=== PATIENT | female | born 1960 | race Caucasian/White ===

== ENCOUNTER 2019-06-01 09:00 | Outpatient (CLI) | payer OTHER, SELFPAY ==
--- NOTE | 2019-06-01 09:10 | XR_ITS ---
NOTE: Report was unsigned for reason: Ordering provider was edited. Original Signature date and time was: 06/01/19 0944 WS: [id number] LUMBAR SPINE: 3 VIEWS TECHNIQUE: AP, lateral and L5-S1 spot. HISTORY: BACK PAIN COMPARISON: 12/22/2014 Very slight LEFT convex curvature of the lumbar spine. Asymmetric disc space narrowing greatest on the LEFT at L4-5. Progression of the facet joint and disc space narrowing at L4-5 since 2004. Moderate disc space narrowing and desiccation at L4-5. Endplate osteophytes at all levels otherwise. Pedicles are identified. SI joints are symmetric bilaterally. No soft tissue abnormalities. [facility]XR [facility] spine 2-3V* [id number] IMPRESSION: 1. Mild LEFT convex curvature lumbar spine. 2. Advancing degenerative disc disease at all 4 5. Asymmetric disc space narro wing, greatest on the LEFT with progression since 2004.
== END 2019-06-01 09:01 | disposition home or self-care (01) ==
LOC: RAD 09:03
PROVIDERS: Family Provider Nurse Practitioner; PCP Family Medicine; Referring Provider Internal Medicine; Visit Provider Internal Medicine
DX: M47.896 Other spondylosis, lumbar region (principal); M54.5 Low back pain
CPT/HCPCS: 72100